=== PATIENT | male | born 1945 | race Caucasian/White ===

== ENCOUNTER 2023-09-21 13:42 | Emergency (ER) | payer MEDICARE ==
[2023-09-21 15:03] LABS: CORONAVIRUS COVID-19 NAA NEGATIVE (NEGATIVE); INFLUENZA A NAA NEGATIVE (NEGATIVE); INFLUENZA B NAA NEGATIVE (NEGATIVE); RESPIRATORY SYNCYTIAL VIR NAA NEGATIVE (NEGATIVE)
[2023-09-21] MEDS ORDERED: Albuterol 0.083% 2.5 MG/3 ML Neb Soln NEB ONE (15:03)
[2023-09-21 15:17] LABS: BASOPHILS PERCENT AUTO 0.3 % (0.1-1.3); EOSINOPHILS ABSOLUTE AUTO 0.03 K/uL (0.00-0.40); EOSINOPHILS PERCENT AUTO 0.4 % (0.0-5.4); HEMATOCRIT 43.4 % (38.4-49.7); HEMOGLOBIN 14.6 g/dL (12.9-16.9); IMMATURE GRAN ABSOLUTE AUTO 0.03 K/uL (0.00-0.23); IMMATURE GRAN PERCENT AUTO 0.4 % (0.0-0.7); LYMPHOCYTES ABSOLUTE AUTO 0.57 K/uL (0.8-3.3); LYMPHOCYTES PERCENT AUTO 7.8 % (11.4-47.7); MEAN CORPUSCULAR HGB CONC 33.6 g/dL (31.6-35.5); MEAN CORPUSCULAR VOLUME 89.3 fL (81.4-99.0); MONOCYTES ABSOLUTE AUTO 0.59 K/uL (0.20-0.90); NEUTROPHILS ABSOLUTE AUTO 6.09 K/uL (1.0-7.6); NEUTROPHILS PERCENT AUTO 83.1 % (40.0-78.1); PLATELET COUNT,PLT 153 K/uL (130-375); RED BLOOD CELL COUNT 4.86 M/uL (4.14-5.76); WHITE BLOOD CELL COUNT,WBC 7.3 K/uL (3.2-11.0)
[2023-09-21 15:21] LABS: BASOPHILS ABSOLUTE AUTO 0.02 K/uL (0.00-0.10)
[2023-09-21 15:37] LABS: A/G RATIO 0.8 (1.2-2.2); ALANINE AMINOTRANSFERASE,ALT 14 U/L (12-78); ALBUMIN 3.1 g/dL (3.4-5.0); ALKALINE PHOSPHATASE 79 U/L (46-116); ANION GAP 14.8 mmol/L (5.0-14.0); ASPARTATE AMNIOTRANSFERASE,AST 31 U/L (15-37); BILIRUBIN TOTAL 1.1 mg/dL (0.2-1.0); BLOOD UREA NITROGEN,BUN 20 mg/dL (7-18); CALCIUM 8.8 mg/dL (8.5-10.1); CARBON DIOXIDE,CO2 28 mmol/L (21-32); CHLORIDE,CL 94 mmol/L (100-108); EST CRCL DRUG DOSING (CG) 60.83 mL/min; ESTIMATED GFR 76 mL/min (>60); GLUCOSE RANDOM 108 mg/dL (74-106); POTASSIUM,K 4.8 mmol/L (3.6-5.2); PROTEIN TOTAL,TP 7.1 g/dL (6.4-8.2); SODIUM,NA 132 mmol/L (140-148)
[2023-09-21 15:45] LABS: TROPONIN I HIGH SENSITIVITY 8.1 pg/mL (<=60.3)
[2023-09-21] MEDS ORDERED: Albuterol/Ipratropium 3.0-0.5 MG/3 ML Neb Soln NEB ONE (16:23)
[2023-09-21] MEDS ORDERED: Sodium Chloride 0.9% 50 ML IV ONE (16:28)
[2023-09-21] MEDS ORDERED: Sodium Chloride 0.9% 10 ML Syringe FLUSH ONE (16:28)
[2023-09-21] MEDS ORDERED: Iopamidol 755 Mg/ML 100 ML Bottle IV SCH (16:30)
[2023-09-21 18:18] VITALS: BP 107/56; PULSE 106
== END 2023-09-21 19:00 | disposition home or self-care (01) ==
LOC: JP.ED 13:42
DX: R91.8 Other nonspecific abnormal finding of lung field (principal); Z20.822 Contact with and (suspected) exposure to COVID-19; Z87.891 Personal history of nicotine dependence; Z79.82 Long term (current) use of aspirin; Z79.899 Other long term (current) drug therapy; Z88.8 Allergy status to other drugs, medicaments and biological substances
CPT/HCPCS: 0241U; 36415; 71046; 71275; 80053; 83605; 83880; 84484; 85025; 85379; 94640; 99285; J3490; J7620; Q9967

== ENCOUNTER 2023-09-23 02:39 | Emergency (ER) | payer MEDICARE ==
[2023-09-23] MEDS ORDERED: Ketorolac 30 MG/ML SDV IVPUSH ONE (03:19)
[2023-09-23] MEDS ORDERED: Ketamine 500 MG/5 ML MDV IV ONE (04:20)
[2023-09-23] MEDS ORDERED: Ketamine 500 MG/5 ML MDV IV PRN (06:31)
[2023-09-23 07:30] VITALS: BP 127/87; PULSE 82
== END 2023-09-23 07:43 ==
LOC: JP.ED 02:39
DX: S72.331A Displaced oblique fracture of shaft of right femur, initial encounter for closed fracture (principal); J44.9 Chronic obstructive pulmonary disease, unspecified; Z79.82 Long term (current) use of aspirin; Z79.899 Other long term (current) drug therapy; Z88.1 Allergy status to other antibiotic agents
CPT/HCPCS: 73552; 96374; 96375; 96376; 99285; J1885; U0002